=== PATIENT | female | born 1965 | race Two or more races ===

== ENCOUNTER 2016-10-28 00:08 | Emergency (ER) | payer SELFPAY ==
[~2016-10-28] VITALS: Ht 160 cm; Wt 86.2 kg
[2016-10-28 00:28] VITALS: BP 126/72
[2016-10-28] MEDS ORDERED: HYDROcodone-ACET 10/325MG TAB PO ONE (02:15)
== END 2016-10-28 02:59 | disposition home or self-care (01) ==
LOC: EDBD 00:08 → ER 00:08
DX: M54.9 Dorsalgia, unspecified (principal); M79.602 Pain in left arm; M79.601 Pain in right arm; F43.0 Acute stress reaction